=== PATIENT | female | born 1930 | race Caucasian/White ===

== ENCOUNTER 2018-08-31 15:31 | Inpatient (IN) | payer MEDICARE, OTHER ==
[~2018-08-31] VITALS: Ht 167.6 cm; Wt 62.2 kg
--- NOTE | 2018-08-31 15:51 | NUR ---
Pt presents to ED by EMS from [facility] office with c/o abnormal EKG and "nausea, vomiting, and diarrhea for one week". Per EMS, "nausea, vomiting, and diarrhea subsided three days ago." Pt is AOX4, skin is pink, warm, dry, and pt has unlabored respirations equal bilaterally. NADN. Pt has 20g PIV in right forearm placed STAFF ASSISTANT. All safety measures in place. Pt connected to all monitors including teletypesetter monitor. Call light within reach. hydrology technician at bedside performing EKG. Pt denies cp, sob, n/v/d, diaphoresis at this time. Pt's family at bedside. Pt's family states, "She has had some left shoulder pain for one week, we don't know if it is muscle or what, the doctor gave her a numbing shot so she can't really feel her shoulder or tailbone at this time. This week she has been sweaty, nauseas, and vomiting."
[2018-08-31] MEDS ORDERED: POTA10TA PO (16:02)
[2018-08-31] MEDS ORDERED: CIPR500T3 PO (16:02)
[2018-08-31] MEDS ORDERED: FURO20TA3 PO ×2 (16:02)
[2018-08-31] MEDS ORDERED: LOVA40TA2 PO (16:02)
[2018-08-31] MEDS ORDERED: FERR324T18 PO (16:02)
[2018-08-31] MEDS ORDERED: LISI-170 PO (16:02)
[2018-08-31] MEDS ORDERED: TRAZ50TA66 PO (16:02)
[2018-08-31 16:39] LABS: ALBUMIN 2.5 g/dL (3.4-5.0); ANION GAP 7 mmol/L (5-15); CALCIUM 7.4 mg/dL (8.5-10.1); CHLORIDE 110 mmol/L (98-107); CREATININE 0.96 mg/dL (0.55-1.02); INTERNATIONAL NORMALIZED RATIO 1.39 (0.93-1.1); PROTHROMBIN TIME 14.4 Seconds (9.6-11.5)
[2018-08-31 16:42] LABS: TROPONIN I 0.029 ng/mL (0.000-0.045)
--- NOTE | 2018-08-31 16:49 | NUR ---
Pt resting on gurney with family at bedside. NADN. No needs expressed. Call light within reach. All safety measures in place. Waiting for labs.
[2018-08-31 16:50] LABS: MEAN CORPUSCULAR HEMOGLOBIN 24.9 pg (27.0-34.8); MEAN CORPUSCULAR HGB CONC 32.5 g/dL (32.4-35.8); MEAN CORPUSCULAR VOLUME 76.6 fL (80-100); MEAN PLATELET VOLUME 11.1 fL (7.4-10.4); PLATELET COUNT 97 x10^3/uL (130-400); RED BLOOD COUNT 5.43 x10^6/uL (3.82-5.3); RED CELL DISTRIBUTION WIDTH 22.5 % (9.6-15.2)
[2018-08-31 16:51] LABS: BASOPHILS # (AUTO) 0.07 x10^3/uL (0-0.1); BASOPHILS % (AUTO) 1 % (0-1); EOSINOPHILS # (AUTO) 0.13 x10^3/uL (0-0.4); EOSINOPHILS % (AUTO) 1 % (1-7); LYMPHOCYTES # (AUTO) 1.05 x10^3/uL (1-3.4); LYMPHOCYTES % (AUTO) 10 % (22-44); MONOCYTES # (AUTO) 0.79 x10^3/uL (0.2-0.8); MONOCYTES % (AUTO) 7 % (2-9); NEUTROPHILS % (AUTO) 81 % (42-75)
[2018-08-31 16:52] LABS: MD MORPH REVIEW ONLY
[2018-08-31 16:54] LABS: ANISOCYTOSIS 1+; MICROCYTOSIS 1+; POLYCHROMASIA 1+
[2018-08-31 16:55] LABS: <PLATELET ESTIMATE> DECREASED; LARGE PLATELETS 1+
[2018-08-31] MEDS ORDERED: POTASSIUM CHLORIDE 20 MEQ TAB.ER.PRT ONE (17:21)
--- NOTE | 2018-08-31 17:26 | NUR ---
Pt resting on gurney connected to all monitors. Provided pt medication per [facility]AR. ADRIEL.
[2018-08-31] MEDS ORDERED: POTASSIUM CHLORIDE 20 MEQ TAB.ER.PRT PO ONE (17:30)
[2018-08-31] MEDS ORDERED: DOCUSATE 100 MG CAPSULE PO PRN (17:30)
[2018-08-31] MEDS ORDERED: POLYETHYLENE GLYCOL 17 GM PACKET PO PRN (17:30)
[2018-08-31] MEDS ORDERED: ACETAMINOPHEN 325 MG TABLET PO PRN (17:30)
[2018-08-31] MEDS ORDERED: LIDODERM 5% PATCH TD PRN (17:30)
[2018-08-31] MEDS ORDERED: BISACODYL 10 MG SUPP PR PRN (17:30)
[2018-08-31] MEDS ORDERED: hydrALAzine 20 MG/ML, 1ML IVPush PRN (17:30)
[2018-08-31] MEDS ORDERED: ONDANSETRON ODT 4 MG PO PRN (17:30)
[2018-08-31] MEDS ORDERED: ONDANSETRON 2MG/ML, 2ML IVPush PRN (17:30)
[2018-08-31] MEDS ORDERED: GUAIFENESIN/DM 200-20MG, 10ML UDC PO PRN (17:30)
--- NOTE | 2018-08-31 17:55 | NUR ---
Provided report to MO Fletcher. All questions answered. Pt ready to transfer to floor from ED
--- NOTE | 2018-08-31 18:05 | NUR ---
Pt transfered to floor on [facility] and left with all personal belongings.
[2018-08-31 18:22] LABS: FREE T4 (FREE THYROXINE) 1.49 ng/dL (0.76-1.46); TROPONIN I 0.032 ng/mL (0.000-0.045)
[2018-08-31 18:25] VITALS: BP 120/88
[2018-08-31 18:27] LABS: THYROID STIMULATING HORMONE 0.929 mIU/L (0.358-3.740)
[2018-08-31 20:11] VITALS: BP 121/79
[2018-08-31] MEDS: FUROSEMIDE 20 MG/2 ML IV SCH (21:25)
[2018-08-31] MEDS: LOVASTATIN 40 MG TABLET PO SCH (21:25)
[2018-08-31] MEDS: APIXABAN 2.5 MG TABLET PO SCH (21:25)
[2018-08-31] MEDS: METOPROLOL TARTRATE 25 MG TABLET PO SCH ×2 (21:25→21:26)
[2018-09-01] VITALS (10 sets, daily range): BP systolic 86–113; BP diastolic 40–84
[2018-09-01 00:15] LABS: TROPONIN I 0.022 ng/mL (0.000-0.045)
[2018-09-01 00:55] LABS: CULTURE INDICATED? YES; MICROSCOPIC INDICATED
[2018-09-01 05:57] LABS: ANION GAP 7 mmol/L (5-15); CALCIUM 7.8 mg/dL (8.5-10.1); CHLORIDE 107 mmol/L (98-107); CREATININE 1.05 mg/dL (0.55-1.02)
[2018-09-01 06:14] LABS: BASOPHILS # (AUTO) 0.01 x10^3/uL (0-0.1); BASOPHILS % (AUTO) 0 % (0-1); EOSINOPHILS # (AUTO) 0.11 x10^3/uL (0-0.4); EOSINOPHILS % (AUTO) 1 % (1-7); LYMPHOCYTES # (AUTO) 0.91 x10^3/uL (1-3.4); LYMPHOCYTES % (AUTO) 12 % (22-44); MD SCAN; MEAN CORPUSCULAR HEMOGLOBIN 25.3 pg (27.0-34.8); MEAN CORPUSCULAR HGB CONC 32.5 g/dL (32.4-35.8); MEAN PLATELET VOLUME 11.2 fL (7.4-10.4); MONOCYTES # (AUTO) 0.22 x10^3/uL (0.2-0.8); MONOCYTES % (AUTO) 3 % (2-9); NEUTROPHILS # (AUTO) 6.64 x10^3/uL (1.8-6.8); NEUTROPHILS % (AUTO) 84 % (42-75); PLATELET COUNT 124 x10^3/uL (130-400); RED BLOOD COUNT 5.86 x10^6/uL (3.82-5.3); RED CELL DISTRIBUTION WIDTH 21.9 % (9.6-15.2)
[2018-09-01] MEDS ORDERED: LISINOPRIL 20 MG TABLET PO SCH ×2 (09:00)
[2018-09-01] MEDS: APIXABAN 2.5 MG TABLET PO SCH ×2 (09:05→20:23)
[2018-09-01] MEDS: FUROSEMIDE 20 MG/2 ML IV SCH (09:05)
[2018-09-01] MEDS: POTASSIUM CHLORIDE 20 MEQ TAB.ER.PRT PO SCH (09:06)
[2018-09-01] MEDS: METOPROLOL TARTRATE 25 MG TABLET PO SCH ×4 (09:06→22:18)
[2018-09-01] MEDS ORDERED: LISINOPRIL 5 MG TABLET ONE (09:11)
[2018-09-01] MEDS: DILTIAZEM 30 MG TABLET PO SCH ×3 (11:46→20:23)
[2018-09-01] MEDS: CEFTRIAXONE PMX 1GM/50ML 50 ML IV SCH (15:55)
[2018-09-01] MEDS ORDERED: DIGOXIN 0.25 MG/ML, 2ML IVPush ONE (17:00)
[2018-09-01] MEDS: LOVASTATIN 40 MG TABLET PO SCH (20:23)
[2018-09-01] MEDS ORDERED: DILTIAZEM 30 MG TABLET PO SCH (21:00)
[2018-09-02 01:36] VITALS: BP 110/70
[2018-09-02 05:25] LABS: ANION GAP 5 mmol/L (5-15); CALCIUM 8.1 mg/dL (8.5-10.1); CHLORIDE 109 mmol/L (98-107); CREATININE 1.07 mg/dL (0.55-1.02)
[2018-09-02] MEDS: POTASSIUM CHLORIDE 20 MEQ TAB.ER.PRT PO SCH (07:57)
[2018-09-02] MEDS: DIGOXIN 0.125 MG TABLET PO SCH (09:17)
[2018-09-02] MEDS: FUROSEMIDE 20 MG TABLET PO SCH (09:17)
[2018-09-02] MEDS: METOPROLOL SUCCINATE 25 MG TAB.ER.24H PO SCH ×2 (09:17→21:34)
[2018-09-02] MEDS: DILTIAZEM 30 MG TABLET PO SCH ×2 (09:17→21:32)
[2018-09-02] MEDS: APIXABAN 2.5 MG TABLET PO SCH ×2 (09:17→21:32)
[2018-09-02 09:29] VITALS: BP 114/78
[2018-09-02 13:39] VITALS: BP 94/61
[2018-09-02] MEDS: CEFTRIAXONE PMX 1GM/50ML 50 ML IV SCH (15:12)
[2018-09-02 19:00] VITALS: BP 106/72
[2018-09-02] MEDS: LOVASTATIN 40 MG TABLET PO SCH (21:32)
[2018-09-03 03:20] VITALS: BP 123/82
[2018-09-03 07:40] VITALS: BP 126/85
[2018-09-03] MEDS: POTASSIUM CHLORIDE 20 MEQ TAB.ER.PRT PO SCH (09:33)
[2018-09-03] MEDS: DIGOXIN 0.125 MG TABLET PO SCH (09:33)
[2018-09-03] MEDS: METOPROLOL SUCCINATE 25 MG TAB.ER.24H PO SCH (09:33)
[2018-09-03] MEDS: DILTIAZEM 30 MG TABLET PO SCH (09:34)
[2018-09-03] MEDS: FUROSEMIDE 20 MG TABLET PO SCH (09:34)
[2018-09-03] MEDS: APIXABAN 2.5 MG TABLET PO SCH (09:37)
[2018-09-03 10:39] LABS: ANION GAP 7 mmol/L (5-15); CALCIUM 8.1 mg/dL (8.5-10.1); CHLORIDE 107 mmol/L (98-107); CREATININE 0.92 mg/dL (0.55-1.02)
[2018-09-03] MEDS ORDERED: CEFP200T PO (13:26)
[2018-09-03] MEDS ORDERED: POTA20TA6 PO (13:26)
[2018-09-03] MEDS ORDERED: METO25TA91 PO (13:26)
[2018-09-03] MEDS ORDERED: FURO20TA3 PO (13:26)
[2018-09-03] MEDS ORDERED: APIX2.5T PO (13:26)
[2018-09-03] MEDS ORDERED: LOVA40TA2 PO (13:26)
[2018-09-03] MEDS ORDERED: DILT30TA27 PO (13:26)
[2018-09-03] MEDS ORDERED: DIGO125T PO (13:26)
== END 2018-09-03 14:35 | disposition home or self-care (01) | DRG 291 ==
LOC: ED 17:07 → EDIP 17:08 → ED 17:58 → 5SO 18:19 → DCLOUNGE 09-03 14:19
PROVIDERS: ADMIT Hospitalist; ATTEND Hospitalist
DX: I11.0 Hypertensive heart disease with heart failure (principal); E43 Unspecified severe protein-calorie malnutrition; D68.69 Other thrombophilia; J98.11 Atelectasis; N39.0 Urinary tract infection, site not specified; I48.91 Unspecified atrial fibrillation; I50.23 Acute on chronic systolic (congestive) heart failure; E78.00 Pure hypercholesterolemia, unspecified; E78.5 Hyperlipidemia, unspecified; I95.9 Hypotension, unspecified; E87.6 Hypokalemia; H91.90 Unspecified hearing loss, unspecified ear; I42.9 Cardiomyopathy, unspecified; I44.7 Left bundle-branch block, unspecified; Z96.641 Presence of right artificial hip joint; Z90.710 Acquired absence of both cervix and uterus; Z98.42 Cataract extraction status, left eye; Z98.41 Cataract extraction status, right eye; Z88.0 Allergy status to penicillin; Z88.2 Allergy status to sulfonamides; Z87.891 Personal history of nicotine dependence; Z68.22 Body mass index [BMI] 22.0-22.9, adult
CPT/HCPCS: 36415; 71045; 80048; 80162; 81001; 82040; 83036; 83735; 83880; 84100; 84132; 84439; 84443; 84484; 85025; 85610; 85730; 87086; 93005; 93306; 99285; G0378; J0696; J1160; J1940

== ENCOUNTER 2018-11-22 10:16 | Emergency (ER) | payer MEDICARE ==
[~2018-11-22] VITALS: Ht 162.6 cm; Wt 57.0 kg
[~2018-11-22 10:16] MED LIST: APIX2.5T PO; CEFP200T PO; CIPR500T3 PO; DIGO125T PO; DILT30TA27 PO; FERR324T18 PO; FURO20TA3 PO; LISI-170 PO; LOVA40TA2 PO; METO25TA91 PO; POTA10TA PO; POTA20TA6 PO; TRAZ50TA66 PO
--- NOTE | 2018-11-22 10:21 | NUR ---
Pt BIB ambulance-Pt reports GLF on Thursday, states "I just lost my balance and fell." Pt reports fell onto her L wrist and chest. Pt c/o L wrist pain, L upper chest wall pain. Pt denies other pain or injury. Pt was given a total of 100mcg Fentanyl by EMS NEIGHBORHOOD WORKER, states pain 0/10 at this time. Pt's CMS intact in affected extremity. Pt positioned for comfort in bed, NADN, denies needs. Pt's daughter in law Erlinda at bedside.
--- NOTE | 2018-11-22 11:03 | NUR ---
Dr. Fried at bedside to discuss POC with pt.
--- NOTE | 2018-11-22 12:41 | NUR ---
Pt states she is missing her ID and insurance card. Pt states she gave them to the [facility] medication coordinator crew that brought her in and did not get them back. This RN attempted to contact [facility] department without success. Called alternate number and spoke with front end driver who states they will call the crew and check for the cards, then call this RN back. Discussed with pt.
--- NOTE | 2018-11-22 13:01 | NUR ---
[facility] pediatrician/medical doctor called back, states he will drop pt's cards off at her house. Discussed with pt. Pt agreeable to plan, ready for dc.
[2018-11-22 13:02] VITALS: BP 110/71
== END 2018-11-22 13:05 | disposition home or self-care (01) ==
LOC: ED 11:13
DX: S63.502A Unspecified sprain of left wrist, initial encounter (principal); S20.212A Contusion of left front wall of thorax, initial encounter; S60.212A Contusion of left wrist, initial encounter; I48.91 Unspecified atrial fibrillation; I10 Essential (primary) hypertension; W19.XXXA Unspecified fall, initial encounter; Y93.89 Activity, other specified; Y92.009 Unspecified place in unspecified non-institutional (private) residence as the place of occurrence of the external cause; Y99.8 Other external cause status
CPT/HCPCS: 29260; 99283

== ENCOUNTER → 2020-09-10 | Outpatient (CLI) | payer MEDICARE ==
[~2020-09-10] MED LIST changes: -CIPR500T3 PO; +CIPR500T4 PO; -DIGO125T PO; +DIGO125T85 PO
== END | disposition home or self-care (01) ==
LOC: CVU 09:31
PROVIDERS: ATTEND Internal Medicine Cardiovascular Disease
DX: I08.8 Other rheumatic multiple valve diseases (principal); I65.23 Occlusion and stenosis of bilateral carotid arteries; I10 Essential (primary) hypertension; I48.91 Unspecified atrial fibrillation; E78.5 Hyperlipidemia, unspecified; I42.9 Cardiomyopathy, unspecified; R09.89 Other specified symptoms and signs involving the circulatory and respiratory systems
CPT/HCPCS: 93306; 93880